=== PATIENT | female | born 1965 | race Caucasian/White ===

== ENCOUNTER 2017-11-25 09:37 | Emergency (ER) | payer OTHER ==
[~2017-11-25] VITALS: Ht 165.1 cm; Wt 88.5 kg
[2017-11-25] MEDS ORDERED: GLUCOTROL10 MG PO (09:53)
[2017-11-25] MEDS ORDERED: HYZAAR 100-251 EACH PO (09:54)
[2017-11-25] MEDS ORDERED: SYNTHROID50 MCG PO (09:54)
[2017-11-25] MEDS ORDERED: TOPROL XL50 M1 PO (09:54)
== END 2017-11-25 21:13 | disposition home or self-care (01) ==
LOC: ER 09:37
DX: K52.89 Other specified noninfective gastroenteritis and colitis (principal); K57.30 Diverticulosis of large intestine without perforation or abscess without bleeding

== ENCOUNTER 2018-07-14 13:48 | Inpatient (IN) | payer OTHER ==
[~2018-07-14] VITALS: Ht 162.6 cm; Wt 86.6 kg
[~2018-07-14 13:48] MED LIST: GLUCOTROL10 MG PO; HYZAAR 100-251 EACH PO; SYNTHROID50 MCG PO; TOPROL XL50 M1 PO
[2018-07-22] MEDS ORDERED: JARDIANCE10 MG PO (15:37)
[2018-07-22] MEDS ORDERED: RESTORIL15 M1 PO (15:37)
[2018-07-22] MEDS ORDERED: JANUVIA25 MG PO (15:37)
[2018-07-22] MEDS ORDERED: SEROQUEL25 MG PO (15:38)
[2018-07-22] MEDS ORDERED: CLONAZEPAM0.5 MG PO (15:38)
== END 2018-08-01 17:01 | disposition home or self-care (01) | DRG 331 ==
LOC: SURH 07-29 05:45 → O/R 07-29 05:45 → SURH 07-29 10:30
PROVIDERS: ADMIT Colon & Rectal Surgery
PROC: 0DJD8ZZ Inspection of Lower Intestinal Tract, Via Natural or Artificial Opening Endoscopic (ICD-10-PCS; 2018-07-29)
PROC: 0DTN4ZZ Resection of Sigmoid Colon, Percutaneous Endoscopic Approach (ICD-10-PCS; principal; 2018-07-29 10:30)
DX: K57.32 Diverticulitis of large intestine without perforation or abscess without bleeding (principal); K66.0 Peritoneal adhesions (postprocedural) (postinfection); K52.89 Other specified noninfective gastroenteritis and colitis; E11.9 Type 2 diabetes mellitus without complications; I10 Essential (primary) hypertension; E03.8 Other specified hypothyroidism; F41.8 Other specified anxiety disorders

== ENCOUNTER 2019-01-16 05:37 | Day surgery (SDC) | payer OTHER ==
[~2019-01-16 05:37] MED LIST changes: +CLONAZEPAM0.5 MG PO; +JANUVIA25 MG PO; +JARDIANCE10 MG PO; +RESTORIL15 M1 PO; +SEROQUEL25 MG PO
== END 2019-01-16 10:00 | disposition home or self-care (01) ==
LOC: AMB-ENDOS 05:37
DX: K57.32 Diverticulitis of large intestine without perforation or abscess without bleeding (principal); K64.2 Third degree hemorrhoids